=== PATIENT | female | born 1995 | race Two or more races ===

== ENCOUNTER 2017-07-31 21:02 | Emergency (ER) | payer MEDICAID, OTHER ==
[2017-07-31 21:20] VITALS: BP 115/79
== END 2017-08-01 01:22 | disposition left against medical advice (07) ==
LOC: EDBD 21:02 → ER 21:02
DX: R06.02 Shortness of breath (principal); Z53.21 Procedure and treatment not carried out due to patient leaving prior to being seen by health care provider

== ENCOUNTER → 2024-09-16 | Outpatient (CLI) | payer MEDICAID ==
[2024-09-16 14:41] LABS: Free T4 (Free Thyroxine) 1.05 ng/dL (0.89-1.76)
[2024-09-16 14:42] LABS: Follicle Stimulating Hormone 3.73 IU/L (SEE BELOW); Leuteinizing Hormone 4.9 IU/L
== END | disposition home or self-care (01) ==
LOC: LAB 13:38
DX: N92.1 Excessive and frequent menstruation with irregular cycle (principal)
CPT/HCPCS: 36415; 83001; 83002; 84403; 84439; 84443; 87086

== ENCOUNTER → 2024-11-15 | Outpatient (CLI) | payer MEDICAID ==
[2024-11-15 07:50] LABS: Basophils # (auto) 0 10 ^3/uL (0-0.2); Basophils % (auto) 0.8 % (0.0-2.0); Eosinophils # (auto) 0.3 10 ^3/uL (0-0.8); Eosinophils % (auto) 4.5 % (0.0-7.0); Hematocrit 41.1 % (36.0-46.0); Hemoglobin 13.5 g/dL (12.2-16.2); Lymphocytes # (auto) 2.1 10 ^3/uL (0.4-5.4); Lymphocytes % (auto) 36.2 % (10.0-50.0); Monocytes # (auto) 0.2 10 ^3/uL (0-1.3); Monocytes % (auto) 4.1 % (0.0-12.0); Neutrophils # (auto) 3.2 10 ^3/uL (1.6-8.6); Neutrophils % (auto) 54.4 % (37.0-80.0); Nucleated Red Blood Cells % 0.2 %; Platelet Count (auto) 290 10^3/uL (140-450); Red Blood Cells 4.66 10^6/uL (4.0-5.20); Red Cell Distribution Width 13.8 % (11.8-14.3); White Blood Cell 5.9 10^3/uL (4.4-10.8)
[2024-11-15 07:52] LABS: Free T3 3.38 pg/mL (2.3-4.2)
[2024-11-15 07:53] LABS: Alanine Aminotransferase 12 U/L (7-40); Albumin 4.3 g/dL (3.2-4.8); Alkaline Phosphatase 80 U/L (46-116); Anion Gap 9 (5-15); Aspartate Aminotransferase 14 U/L (13-40); BUN/Creatinine Ratio 14.1 (10.0-20.0); Bilirubin, Total 0.3 mg/dL (0.2-1.0); Blood Urea Nitrogen 11 mg/dL (9-23); Calcium 9.8 mg/dL (8.7-10.4); Carbon Dioxide 24 mmol/L (20-31); Potassium 4.3 mmol/L (3.5-5.1); Sodium 140 mmol/L (136-145); T3 Total 1.12 ng/mL (0.60-1.81); Total Protein 7.1 g/dL (5.7-8.2)
[2024-11-15 07:54] LABS: Free T4 (Free Thyroxine) 1.13 ng/dL (0.89-1.76); Prolactin 6.49 ng/mL (2.8-29.2)
[2024-11-15 08:09] LABS: Chloride 107 mmol/L (98-107); Glucose 109 mg/dL (74-106)
== END | disposition home or self-care (01) ==
LOC: LAB 06:40
DX: E28.2 Polycystic ovarian syndrome (principal)
CPT/HCPCS: 36415; 80053; 82670; 83036; 84146; 84403; 84439; 84443; 84480; 84481; 85025; 86376

== ENCOUNTER 2025-04-27 14:02 | Outpatient (CLI) | payer MEDICAID ==
[2025-04-27 14:30] LABS: Hematocrit 38.7 % (36.0-46.0); Hemoglobin 12.9 g/dL (12.2-16.2); Mean Corpuscular Hemoglobin 29.5 pg (28.0-32.0); Mean Corpuscular Volume 88.6 fL (80.0-100.0); Nucleated Red Blood Cells % 0.1 %
[2025-04-27 14:50] LABS: Iron 75.0 ug/dL (50-170)
[2025-04-27 14:53] LABS: Total Iron Binding Capacity 343.0 ug/dL (250-425)
[2025-04-27 14:54] LABS: Alanine Aminotransferase 12 U/L (7-40); Albumin 4.5 g/dL (3.2-4.8); Alkaline Phosphatase 82 U/L (46-116); Anion Gap 7 (5-15); BUN/Creatinine Ratio 10.3 (10.0-20.0); Blood Urea Nitrogen 11 mg/dL (9-23); Calcium 9.8 mg/dL (8.7-10.4); Carbon Dioxide 26 mmol/L (20-31); Chloride 105 mmol/L (98-107); Potassium 4.0 mmol/L (3.5-5.1); Sodium 138 mmol/L (136-145); Total Protein 7.1 g/dL (5.7-8.2)
[2025-04-27 14:55] LABS: Bilirubin, Total 0.3 mg/dL (0.2-1.0); Glucose 111 mg/dL (74-106)
[2025-04-27 14:57] LABS: Ferritin 13.6 ng/mL (10-291)
== END 2025-04-27 17:00 | disposition home or self-care (01) ==
LOC: LAB 14:02
DX: E55.9 Vitamin D deficiency, unspecified (principal); R53.83 Other fatigue
CPT/HCPCS: 36415; 80053; 82607; 82728; 83540; 83550; 85025

== ENCOUNTER 2025-05-19 07:15 | Outpatient (CLI) | payer MEDICAID ==
[2025-05-19 08:05] LABS: Hematocrit 40.6 % (36.0-46.0); Hemoglobin 14.0 g/dL (12.2-16.2); Mean Corpuscular Hemoglobin 30.6 pg (28.0-32.0); Mean Corpuscular Volume 88.9 fL (80.0-100.0); Nucleated Red Blood Cells % 0.1 %
[2025-05-19 08:32] LABS: Cholesterol 169 mg/dL (< 200); Triglycerides 120 mg/dL (< 150)
[2025-05-19 08:35] LABS: HDL Cholesterol 63 mg/dL (40-59)
[2025-05-19 08:42] LABS: Iron 140.0 ug/dL (50-170)
[2025-05-19 08:44] LABS: Alanine Aminotransferase 12 U/L (7-40); Albumin 4.7 g/dL (3.2-4.8); Alkaline Phosphatase 77 U/L (46-116); Anion Gap 10 (5-15); BUN/Creatinine Ratio 12.0 (10.0-20.0); Bilirubin, Total 0.6 mg/dL (0.2-1.0); Blood Urea Nitrogen 11 mg/dL (9-23); Calcium 9.4 mg/dL (8.7-10.4); Carbon Dioxide 25 mmol/L (20-31); Chloride 106 mmol/L (98-107); Glucose 95 mg/dL (74-106); Lipase 42 U/L (12-53); Potassium 4.2 mmol/L (3.5-5.1); Sodium 141 mmol/L (136-145); Total Protein 7.4 g/dL (5.7-8.2)
[2025-05-19 08:45] LABS: Total Iron Binding Capacity 342.0 ug/dL (250-425)
[2025-05-19 10:54] LABS: Hepatitis A Total Antibody Positive (Negative); Hepatitis B Surface Antigen Negative (Negative); Hepatitis C Antibody Negative (Negative)
[2025-05-21 06:06] LABS: Chlamydia Trachomatis, NAA Negative (Negative); Neisseria gonorrhoeae, NAA Negative (Negative)
== END 2025-05-19 17:00 | disposition home or self-care (01) ==
LOC: LAB 07:15
PROVIDERS: ATTEND Licensed Practical Nurse
DX: D50.9 Iron deficiency anemia, unspecified (principal); Z13.29 Encounter for screening for other suspected endocrine disorder; Z13.1 Encounter for screening for diabetes mellitus; Z11.3 Encounter for screening for infections with a predominantly sexual mode of transmission; Z13.220 Encounter for screening for lipoid disorders; Z00.01 Encounter for general adult medical examination with abnormal findings
CPT/HCPCS: 36415; 80053; 80061; 82306; 82728; 83036; 83540; 83550; 83690; 84443; 85025; 86703; 86704; 86706; 86708; 86780; 86803; 87045; 87340; 87427; 87493

== ENCOUNTER 2025-06-05 14:32 | Outpatient (CLI) | payer MEDICAID ==
[2025-06-05 15:38] LABS: Alanine Aminotransferase 11 U/L (7-40); Albumin 4.6 g/dL (3.2-4.8); Alkaline Phosphatase 86 U/L (46-116); Anion Gap 7 (5-15); BUN/Creatinine Ratio 9.2 (10.0-20.0); Calcium 9.4 mg/dL (8.7-10.4); Carbon Dioxide 28 mmol/L (20-31); Chloride 105 mmol/L (98-107); Potassium 3.7 mmol/L (3.5-5.1); Sodium 140 mmol/L (136-145); Total Protein 7.1 g/dL (5.7-8.2)
[2025-06-05 15:39] LABS: Bilirubin, Total 0.2 mg/dL (0.2-1.0); Blood Urea Nitrogen 9 mg/dL (9-23); Glucose 118 mg/dL (74-106)
== END 2025-06-05 17:00 | disposition home or self-care (01) ==
LOC: LAB 14:32
PROVIDERS: ATTEND Internal Medicine Gastroenterology
DX: R10.31 Right lower quadrant pain (principal)
CPT/HCPCS: 36415; 80053

== ENCOUNTER 2025-07-06 15:44 | Emergency (ER) | payer MEDICAID ==
[~2025-07-06] VITALS: Ht 165.1 cm; Wt 83.5 kg
--- NOTE | 2025-07-06 16:31 | ED.PDOC ---
HPI (NEURO) HPI Comments A 30 YEAR OLD FEMALE PRESENTS TO THE ED WITH COMPLAINT OF RIGHT SIDED HEADACHE. PT STATES SHE HAS HX OF MIGRAINE HEADACHES FOR YEARS. TODAY, SHE WAS AT WORK AND STARTED HAVING RIGHT SIDED HEADACHE WITH DIZZINESS AND NAUSEA. PER PT, HER HEADACHE IS DIFFERENT FROM HER NORMAL MIGRAINE HEADACHES. PATIENT DENIES VISION CHANGES, SLURRED SPEECH, ONE-SIDED WEAKNESS, FACIAL DROOP, FEVER, CHILLS, SHORTNESS OF BREATH, CHEST PAIN, ABDOMINAL PAIN, VOMITING, OR OTHER COMPLAINTS. NO OTHER SYMPTOMS OR MODIFYING FACTORS AT THIS TIME. PATIENT IS ALERT, ORIENTED X 4, AND HAS STEADY GAIT. Chief Complaint: Headache Time Seen by MD: 15:51 Reviewed Notes: Nurses Notes, Medications, Allergies Information Source: Patient Mode of Arrival: Wheelchair Severity: Moderate Headache Severity: Moderate Timing: Hours Duration: Since onset, Hours Prehospital treatment: None Headache Quality: Aching Headache Location: Frontal, Occipital, Parietal Onset: At rest Circumstances: Spontaneous Symptoms: Other (HEADACHE) Modifying factors: Nothing Associated Signs and Symptoms: Headache, Nausea Past Medical History Past Medical History (Other): MIGRAINE HEADACHE Surgical History: Denies all surgeries DEODORIZER OPERATOR History: No Pertinent DEODORIZER OPERATOR History Family History Family History: Reviewed,noncontributory to illness Social History Smoker: Non-Smoker Alcohol: Denies ETOH Use Drugs: Denies Drug Use Lives In: Home Constitutional: reports: others (ANXIOUS ); denies: chills, diaphoresis, fatigue, fever, malaise, sweats, weakness EENTM: denies: blurred vision, double vision, ear bleeding, ear discharge, ear drainage, ear pain, ear ringing, eye pain, eye redness, hearing loss, mouth pain, mouth swelling, nasal discharge, nose bleeding, nose congestion, nose pain, photophobia, tearing, throat pain, throat swelling, voice changes, others Respiratory: denies: cough, hemoptysis, orthopnea, SOB at rest, shortness of breath, SOB with excertion, stridor, wheezing, others Cardiovascular: denies: chest pain, dizzy spells, diaphoresis, Dyspnea on exertion, edema, irregular heart beat, left arm pain, lightheadedness, palpitations, PND, syncope, others Gastrointestinal: reports: nausea; denies: abdomen distended, abdominal pain, blood streaked bowels, constipated, diarrhea, dysphagia, difficulty swallowing, hematemesis, melena, poor appetite, poor fluid intake, rectal bleeding, rectal pain, vomiting, others Genitourinary: denies: abnormal vagina bleeding, burning, dyspareunia, dysuria, flank pain, frequency, hematuria, incontinence, pain, , vagina d ischarge, urgency, others Neurological: reports: headache; denies: dizziness, fainting, left sided numbness, left sided weakness, numbness, paresthesia, pre-existing deficit, right sided numbness, right sided weakness, seizure, speech problems, tingling, tremors, weakness, others Musculoskeletal: denies: back pain, gout, joint pain, joint swelling, muscle pain, muscle stiffness, neck pain, others Integumetry: denies: bruises, change in color, change in hair/nails, dryness, laceration, lesions, lumps, rash, wounds, others Allergic/Immunocompromised: denies: Difficulty Healing, Frequent Infections, Hives, Itching, others Hematologic/Lymphatic: denies: anemia, blood clots, easy bleeding, easy bruising, swollen glands, others Endocrine: denies: excessive hunger, excessive sweating, excessive thirst, excessive urination, flushing, intolerance to cold, intolerance to heat, unexplained weight gain, unexplained weight loss, others Psychiatric: reports: anxiety; denies: bipolar disorder, depression, hopeless, panic disorder, schizophrenia, sleepless, suicidal, others All Other Systems: Reviewed and Negative Physical Exam General Appearance: Mild Distress, Obese, Other (ANXIOUS) HEENT: Normal ENT Inspection, PERRL/EOMI, Pharynx Normal, TMs Normal Neck: Full Range of Motion, Non-Tender, Normal, Normal Inspection Respiratory: Chest Non-Tender, Lungs Clear, No Accessory Muscle Use, No Respiratory Distress, Normal Breath Sounds Cardiovascular: No Edema, No JVD, No Murmur, No Gallop, Normal Peripheral Pulses, Regular Rate/Rhythm Breast Exam: Deferred Gastrointestinal: No Organomegaly, Non Tender, No Pulsatile Mass, Normal Bowel Sounds, Soft Genitalia: Deferred Pelvic: Deferred Rectal: Deferred Extremities: No calf tenderness, Normal capillary refill, Normal inspection, Normal range of motion, Non-tender, No pedal edema Musculoskeletal : Apperance: Normal Neurologic: Alert, cardiovascular technician II-XII nml as Tested, Headache, No Motor Deficits, Normal Affect, Normal Mood, No Sensory Deficits Cerebellar Function: Normal Reflexes: Normal Skin: Dry, Normal Color, Warm Peripheral Pulses: 2+ carotid (R), 2+ carotid (L) Lymphatic: No Adenopathy Was a procedure done? Was a procedure done?: No Differential Diagnosis (SZ) Seizure: N/A General Weakness: N/A Headache: Cluster, Migraine, Epidural Hemorrhage, Intracerebral Hemorrhage, Subdural Hemorrhage, Sinusitis X-Ray, Labs, Meds, VS Vital Signs Date Time Temp Pulse Resp B/P (MAP) Pulse Ox O2 Delivery O2 Flow Rate FiO2 07/06/25 17:49 97 Room Air* 0 21 07/06/25 16:36 97.9 74 17 124/80 (95) 99 97.9 07/06/25 15:46 98.0 64 18 112/70 100 98.0 Lab Test 07/06/25 15:56 Range/Units POC Glucose 101 70-106 mg/dl Current Medications Medications (Trade) Dose Ordered Sig/Claude Route Start Time Stop Time Status Last Admin Sumatriptan Succinate (Imitrex Inj) 6 mg ONCE ONCE SC 07/06/25 17:30 07/06/25 17:31 DC 07/06/25 17:44 Ondansetron HCl (Zofran Po) 4 mg ONCE ONCE PO 07/06/25 17:30 07/06/25 17:31 DC 07/06/25 17:44 PATIENT: NICHOLAS FERRARICCT: [id number]: [id number] : 1995 LOC: ER ROOM / BED: / AGE / SEX: 30 / F ADM STATUS: REG ER SERVICE [id number] ORDERING PHYSICIAN: MANUEL BHAKTA PROCEDURE(s): HWOCT - HEAD WITHOUT CONTRAST REASON: RIGHT SIDE HEAD PAIN ORDER NUMBER(s): [id number], ACCESSION NUMBER(s): [id number] Exam: CT HEAD WITHOUT CONTRAST History: RIGHT SIDE HEAD PAIN Technique: [address] images through the posterior fossa and the supratentorial compartment were acquired without contrast and imaged using soft tissue and bone algorithms. RADIATION DOSE: DLP 915.07 mGy.cm; CTDI vol 53.17 mGy. Comparison: CT BRAIN on DOS: 03/04/23 Findings: There is no evidence of an intracranial hemorrhage, acute large vessel infarct, mass effect, or midline shift. The calvarium, orbits, paranasal sinuses, sella, middle ears, and mastoids are unremarkable. The superficial soft tissues are within normal limits. Impression: 1. No acute intracranial abnormality. ATED BY: SOUMYA APARICIO DO DICTATED DATE/TIME: 07/06/251716 SIGNED BY: SOUMYA APARICIO DO SIGNED DATE/TIME: 07/06/251716 CC: X-Ray, Labs, Meds, VS Comment EXTERNAL MEDICAL RECORDS REVIEWED: [NONE] INDEPENDENT HISTORIANS: [NONE] SOCIAL DETERMINANTS OF HEALTH: [NONE] LABS ORDERED: NONE REVIEWED AND INTERPRETED RESULTS: NONE IMAGING ORDERED: CT-BRAIN TREATMENTS ORDERED: IMITREX 6MG IM AND ZOFRAN 4MG PO PROCEDURES PERFORMED: NONE CRITICAL CARE TIME: NONE I HAVE DISCUSSED THE PATIENT WITH THE ATTENDING PHYSICIAN DR. CHANDLER AND HE AGREES WITH THE PATIENT'S PLAN OF CARE AND DISPOSITION. BASED ON HISTORY OF PRESENT ILLNESS, AND PHYSICAL EXAM, PATIENT WILL BE DISCHARGED HOME. DISCUSSED PLAN FOR DISCHARGE HOME WITH RX [IMITREX AND ZOFRAN]. MEDICATION WARNINGS GIVEN. SHARED DECISION MAKING: DISCUSSED WITH PATIENT THAT THEIR WORKUP WAS NORMAL. PATIENT INSTRUCTED TO FOLLOW UP WITH PRIMARY CARE PROVIDER IN 1-2 DAYS FOR RE- EVALUATION OF SYMPTOMS. PATIENT VERBALIZES UNDERSTANDING TO RETURN TO ED FOR NEW OR WORSENING SYMPTOMS OR IF FOLLOW UP WITH PCP CANNOT BE OBTAINED. PATIENT FEELS COMFORTABLE GOING HOME AT THIS TIME. ALL QUESTIONS ADDRESSED AT TIME OF DISCHARGE. Images Reviewed?: Images reviewed and evaluated by me Time of 1ST Reevaluation: 18:00 Reevaluation 1ST: Improved Patient Education/Counseling: Diagnosis, Treatment, Need For Follow Up Family Education/Counseling: Diagnosis, Treatment, Need For Follow Up Medical Screening: No EMC Exist At This Time Departure 1 Departure Time of Disposition: 18:00 Impression: Primary Impression: Migraine headache without aura Qualified Codes: G43.009 - Migraine without aura, not intractable, without status migrainosus Disposition: HOME / SELF CARE / HOMELESS Condition: Stable Additional Instructions: FOLLOW-UP WITH PCP IN 1 TO 2 DAYS. TAKE MEDICATIONS PRESCRIBED. RETURN TO ED FOR ANY NEW OR WORSENING SYMPTOMS. e-Prescriptions Ondansetron Odt 4MG Tab (ZOFRAN PO) 4 Mg Tb 4 MG PO BID, #14 TAB ODT TAB-DISSOLVE IN MOUTH, THEN SWALLOW Prov: MANUEL BHAKTA 07/06/25 Sumatriptan Succinate (Imitrex) 50 Mg Tab 1 TAB PO BID, #20 TAB Prov: MANUEL BHAKTA 07/06/25 Discharged With: Self Critical Care Note Critical Care Time?: No Stability Stability form required: No I personally scribed for MANUEL BHAKTA ([email or web address]) on 07/06/25 at 16:31. Electronically submitted by Stefano Ferrari ([employer]). I personally scribed for MANUEL BHAKTA ([email or web address]) on 07/07/25 at 07:18. Electronically submitted by Stefano Ferrari ([employer]). MANUEL BHAKTA Jul 06, 2025 16:31
[2025-07-06 16:36] VITALS: BP 124/80; PULSE 74; RESP 17; TEMP 97.9
--- NOTE | 2025-07-06 17:19 | DVH ---
Exam: CT HEAD WITHOUT CONTRAST History: RIGHT SIDE HEAD PAIN Technique: [address] images through the posterior fossa and the supratentorial compart ment were acquired without contrast and imaged using soft tissue and bone algorithms. RADIATION DOSE: DLP 915.07 mGy.cm; CTDI vol 53.17 mGy. Comparison: CT BRAIN on DOS: 03/04/23 Findings: There is no evidence of an intracranial hemorrhage, acute large vessel infarct, mass effect, or midli ne shift. The calvarium, orbits, paranasal sinuses, sella, middle ears, and mastoids are unremarkable. The superficial soft tissues are within normal limits. Impression: 1. No acute intracranial abnormality.
[2025-07-06] MEDS ORDERED: SUMA50TA2 PO (17:40)
[2025-07-06] MEDS ORDERED: ZOFR4T PO (17:40)
[2025-07-06] MEDS: SUMAtriptan SUCCINATE 6 MG/0.5 ML VL SC ONE (17:44)
[2025-07-06] MEDS: ONDANSETRON ODT 4 MG TAB PO ONE (17:44)
[2025-07-06 17:49] VITALS: O2SAT 97
== END 2025-07-06 17:37 | disposition home or self-care (01) ==
LOC: ER 15:50
DX: G43.009 Migraine without aura, not intractable, without status migrainosus (principal)
CPT/HCPCS: 70450; 82947; 96372; 99285; J3030; Q0162; 82962